=== PATIENT | male | born 1950 | race Caucasian/White ===

== ENCOUNTER → 2020-03-24 09:40 | Outpatient (BNVA) | payer MEDICARE, BC, SELFPAY | PROVIDERS: Referring Provider Otolaryngology Otolaryngology/Facial Plastic Surgery; Visit Provider Psychiatry & Neurology Neurology | DX: H49.22 Sixth [abducent] nerve palsy, left eye (principal); I10 Essential (primary) hypertension; E11.42 Type 2 diabetes mellitus with diabetic polyneuropathy; J44.9 Chronic obstructive pulmonary disease, unspecified | CPT/HCPCS: 99205 ==